=== PATIENT | female | born 1975 | race Caucasian/White ===

== ENCOUNTER 2018-10-28 08:00 | Outpatient (CLI) | payer BC, OTHER ==
[~2018-10-28] VITALS: Ht 160 cm; Wt 101.8 kg
== END 2018-10-28 23:59 | disposition home or self-care (01) ==
LOC: STAR 08:00 → OUT 10-29 12:40 → EDSTATUS 10-29 14:30
PROVIDERS: ATTEND Specialist
DX: N70.11 Chronic salpingitis (principal); Z53.8 Procedure and treatment not carried out for other reasons; E66.3 Overweight; Z68.39 Body mass index [BMI] 39.0-39.9, adult; Z79.84 Long term (current) use of oral hypoglycemic drugs; Z79.899 Other long term (current) drug therapy; Z87.442 Personal history of urinary calculi
CPT/HCPCS: 36415; 80053; 93005